=== PATIENT | female | born 1965 | race Caucasian/White ===

== ENCOUNTER 2017-10-17 16:35 | Emergency (ER) | payer BC ==
[2017-10-17 17:13] VITALS: BP 123/91
--- NOTE | 2017-10-17 17:23 | UC ---
Respiratory Complaint HPI - HPI Summary HPI Summary: Pt presents with fever, body aches, and dry cough for the last 4 days. She tells me that her symptoms began with fatigue and body aches, but she has developed a dry cough since yesterday. Also feels sinus congestion. Denies SOB, chest pain, abdominal pain, n/v/d/c. She is still smoking - History of Current Complaint Chief Complaint: UCRespiratory Stated Complaint: COUGH,CONGESTION Time Seen by Provider: 10/17/17 17:23 Hx Obtained From: Patient Onset/Duration: Gradual Onset Timing: Constant Severity Initially: Moderate Severity Currently: Moderate Pain Intensity: 4 Pain Scale Used: 0-10 Numeric Character: Cough: Nonproductive - Allergies/Home Medications Allergies/Adverse Reactions: Allergies Allergy/AdvReac Type Severity Reaction Status Date / Time Lamotrigine [From Lamictal] Allergy Rash Verified 10/17/17 17:14 PMH/Surg Hx/FS Hx/Imm Hx - Surgical History Surgical History: Yes Surgery Procedure, Year, and Place: Hysterectomy - Family History Known Family History: Positive: Respiratory Disease - COPD ASTHMA - Social History Occupation: Employed Full-time Lives: Alone Alcohol Use: None Substance Use Type: None Smoking Status (MU): Heavy Every Day Tobacco Smoker Amount Used/How Often: 1/2 PPD Cessation Counseling: Counseled 3+Min - 10 Min Review of Systems Constitutional: Fever, Fatigue, Other - Body aches Skin: Negative Eyes: Negative ENT: Negative Respiratory: Cough Cardiovascular: Negative Gastrointestinal: Negative Neurological: Negative Psychological: Negative All Other Systems Reviewed And Are Negative: Yes Physical Exam Triage Information Reviewed: Yes Appearance: Well-Appearing, No Pain Distress, Well-Nourished Vital Signs: Initial Vital Signs Temp 98.5 F 10/17/17 17:11 Pulse 67 10/17/17 17:11 Resp 12 10/17/17 17:11 BP 123/91 10/17/17 17:11 Pulse Ox 98 10/17/17 17:11 Vital Signs Reviewed: Yes Eyes: Positive: Conjunctiva Clear. Negative: Conjunctiva Inflamed, Discharge ENT: Positive: Hearing grossly normal, Pharynx normal, TMs normal, Uvula midline. Negative: Pharyngeal erythema, Nasal congestion, Nasal drainage, TM bulging, TM dull, TM red, Tonsillar swelling, Tonsillar exudate, Hoarse voice, Sinus tenderness Neck: Positive: Supple, Nontender, No Lymphadenopathy Respiratory: Positive: Chest non-tender, Lungs clear, Normal breath sounds, No respiratory distress, No accessory muscle use Cardiovascular: Positive: RRR, No Murmur, Pulses Normal Neurological: Positive: Alert Psychological: Positive: Age Appropriate Behavior Skin: Negative: rashes UC Diagnostic Evaluation - Laboratory O2 Sat by Pulse Oximetry: 98 Respiratory Course/Dx - Course Course Of Treatment: Suspect influenza vs bronchitis - treat with Tamiflu and Albuterol inhaler - Differential Dx/Diagnosis Provider Diagnoses: Influenza. Bronchitis Discharge - Discharge Plan Condition: Stable Disposition: HOME Prescriptions: Albuterol HFA INHALER* [Ventolin HFA Inhaler*] 2 puff INH Q6H PRN #1 mdi PRN Reason: Cough Oseltamivir CAP* [Tamiflu CAP*] 75 mg PO BID #10 cap Patient Education Materials: Influenza (DC) Referrals: Alexandra Franklin MD [Primary Care Provider] - Additional Instructions: If you develop a fever, shortness of breath, chest pain, new or worsening symptoms - please call your PCP or go to the ED.
== END 2017-10-17 17:38 | disposition home or self-care (01) ==
LOC: UCEAST 16:35
DX: J11.1 Influenza due to unidentified influenza virus with other respiratory manifestations (principal); J40 Bronchitis, not specified as acute or chronic; F17.210 Nicotine dependence, cigarettes, uncomplicated
CPT/HCPCS: 99212; G0463

== ENCOUNTER 2017-10-20 14:02 | Emergency (ER) | payer BC ==
[2017-10-20 16:10] VITALS: BP 121/80
--- NOTE | 2017-10-20 16:52 | RAD ---
INDICATION: Cough. COMPARISON: Comparison is made with a prior study from October 07, 2009. TECHNIQUE: Dual-energy PA and lateral views of the chest were obtained. FINDINGS: The heart is within normal limits in size. Mediastinal and hilar contours appear within normal limits. The lungs are clear. No pleural effusion is present. IMPRESSION: NO EVIDENCE FOR ACTIVE CARDIOPULMONARY DISEASE.
--- NOTE | 2017-10-21 22:15 | UC ---
Ksaey Michelle Gabriel, scribed for Tl Davila MD on 10/20/17 at 1616 . Throat Pain/Nasal Nigel HPI - HPI Summary HPI Summary: This patient is a 51 year old F presenting to [facility] [place] with a chief complaint of sinus congestion since 10/17/17. The patient rates the pain 4/10 in severity. Patient reports sore throat, dry cough, trouble breathing, headache, nasal discharge, post nasal drip, and chest congestion. Pt was seen at on 10/17/17 diagnosed with flu without using a swab and given Tamiflu and albuterol. She does not believe these treatments are working. - History of Current Complaint Chief Complaint: UCRespiratory Stated Complaint: CONGESTED, COUGH Time Seen by Provider: 10/20/17 16:11 Hx Obtained From: Patient Onset/Duration: Lasting Days, Still Present Severity: Mild Pain Intensity: 4 Pain Scale Used: 0-10 Numeric Cough: Nonproductive Associated Signs & Symptoms: Positive: Other - sore throat, dry cough, trouble breathing, headache, nasal discharge, post nasal drip, and chest congestion. - Allergies/Home Medications Allergies/Adverse Reactions: Allergies Allergy/AdvReac Type Severity Reaction Status Date / Time MS Lamotrigine Allergy Rash Verified 10/20/17 16:10 [From Lamictal] PMH/Surg Hx/FS Hx/Imm Hx Other History Of: Negative For: HIV, Hepatitis B, Hepatitis C - Surgical History Surgical History: Yes Surgery Procedure, Year, and Place: Hysterectomy - Family History Known Family History: Positive: Respiratory Disease - COPD ASTHMA, Other - cancer Negative: Cardiac Disease, Hypertension, Diabetes, Renal Disease, Seizure Disorder - Social History Alcohol Use: Occasionally Substance Use Type: None Smoking Status (MU): Heavy Every Day Tobacco Smoker Amount Used/How Often: 1/2 PPD Review of Systems ENT: Sore Throat, Nasal Discharge, Sinus Congestion, Other - post nasal drip Respiratory: Cough, Other - trouble breathing, chest congestion Neurological: Headache All Other Systems Reviewed And Are Negative: Yes Physical Exam Triage Information Reviewed: Yes Vital Signs: Initial Vital Signs Temp 99.4 F 10/20/17 16:07 Pulse 56 10/20/17 16:07 Resp 18 10/20/17 16:07 BP 121/80 10/20/17 16:07 Pulse Ox 97 10/20/17 16:07 Vital Signs Reviewed: Yes - Additional Comments Vital signs: Reviewed Gen.: Patient is a well developed and nourished female in no acute distress. Patient is sitting comfortably on the stretcher. Head: Normacephalic and atraumatic Eyes: PERRLA, EOMI x2. Ears: Right ear canal and TM WNL and Left ear canal and TM WNL Nose and mouth: Nose with dry mucosa and clear discharge, positive pharyngeal erythema with no exudate. Neck: Supple, Positive bilateral submandibular and anterior cervical lymphadenopathy. No JVD Lungs: CTA B/L CVS: S1 & S2 present. No murmurs appreciated. ABDOMEN: Soft NT w/ positive BS. EXT: FROM x 4 NEURO: A+O X 3. Diagnostics - Radiology CXR Radiology Interpretation Completed By: Radiologist - NO EVIDENCE FOR ACTIVE CARDIOPULMONARY DISEASE. Dr. Davila has reviewed this report Throat Pain/Nasal Course/Dx - Course Assessment/Plan: This patient is a 51 year old F presenting to [facility] [place] with a chief complaint of sinus congestion since 10/17/17. The patient rates the pain 4/ 10 in severity. Patient reports sore throat, dry cough, trouble breathing, headache, nasal discharge, post nasal drip, and chest congestion. Pt was seen at on 10/17/17 diagnosed with flu without using a swab and given Tamiflu and albuterol. She does not believe these treatments are working. CXR reveals, NO EVIDENCE FOR ACTIVE CARDIOPULMONARY DISEASE. Rapid strep was negative. I discussed all the findings and test results with the patient. Pt was instructed to return to the urgent care or go to ER immediately if any of the symptoms return or worsens. Plan of care was discussed with the patient and pt understands and agrees. All questions were answered to patient satisfaction. There were no further complaints or concerns. Patient was diagnosed with Acute sinusitis. Patient will be discharged with prescription for amoxicillin and follow up from PCP. The patient is agreeable with this plan. - Differential Dx/Diagnosis Differential Diagnosis/HQI/PQRI: Influenza, Laryngitis, Pharyngitis, Sinusitis, URI Provider Diagnoses: Acute sinusitis Discharge - Discharge Plan Condition: Stable Disposition: HOME Prescriptions: Amoxicillin PO (*) [Amoxicillin 875 MG (*)] 875 mg PO BID #20 tab Patient Education Materials: Sinusitis (ED) Forms: *Work Release Referrals: Alexandra Franklin MD [Primary Care Provider] - Additional Instructions: Take medications as instructed Increase your fluid intake Return to the UC if symptoms worsen The documentation as recorded by the Kasey de la garza Gabriel accurately reflects the service I personally performed and the decisions made by , Tl Davila MD.
== END 2017-10-20 17:25 | disposition home or self-care (01) ==
LOC: UCEAST 14:02
DX: J01.90 Acute sinusitis, unspecified (principal); J02.9 Acute pharyngitis, unspecified; R05 Cough; R09.89 Other specified symptoms and signs involving the circulatory and respiratory systems; Z88.8 Allergy status to other drugs, medicaments and biological substances; Z90.710 Acquired absence of both cervix and uterus; F17.210 Nicotine dependence, cigarettes, uncomplicated
CPT/HCPCS: 71046; 87651; 99212; G0463

== ENCOUNTER 2017-10-30 07:43 | Emergency (ER) | payer SELFPAY ==
[2017-10-30 08:02] VITALS: BP 122/80
[2017-10-30] MEDS ORDERED: Ibuprofen TAB* 600 MG PO ONE (08:32)
[2017-10-30] MEDS ORDERED: Cyclobenzaprine TAB* 10 MG PO ONE (08:32)
--- NOTE | 2017-10-30 08:32 | UC ---
Back Pain HPI - HPI Summary HPI Summary: Strained right lateral lower back yesterday at work-No specific traumatic injury No radiation in to leg-n/m/c intact distally, has used Ibuprofen and heat with some relief - History of Current Complaint Chief Complaint: UCBackPain Stated Complaint: BACK INJURY Time Seen by Provider: 10/30/17 08:22 Hx Obtained From: Patient ?: No Onset/Duration: Sudden Onset, Lasting Days - 1 Timing: Constant Severity Initially: Moderate Severity Currently: Moderate Pain Intensity: 10 Back Pain: Is Discrete @ - right lower lateral Character: Aching, Spasmodic, Stiffness Aggravating Factor(s): Movement Alleviating Factor(s): Heat, OTC Meds Associated Signs And Symptoms: Positive: Negative Related History: Occupational Injury - Allergies/Home Medications Allergies/Adverse Reactions: Allergies Allergy/AdvReac Type Severity Reaction Status Date / Time lamotrigine [From Lamictal] Allergy Rash Verified 10/30/17 07:53 PMH/Surg Hx/FS Hx/Imm Hx Previously Healthy: Yes Other History Of: Negative For: HIV, Hepatitis B, Hepatitis C - Surgical History Surgical History: Yes Surgery Procedure, Year, and Place: Hysterectomy - Family History Known Family History: Positive: Respiratory Disease - COPD ASTHMA, Other - cancer Negative: Cardiac Disease, Hypertension, Diabetes, Renal Disease, Seizure Disorder - Social History Occupation: Employed Full-time Lives: With Family Alcohol Use: Occasionally Substance Use Type: None Smoking Status (MU): Heavy Every Day Tobacco Smoker Amount Used/How Often: 4-5 cigs per day Cessation Counseling: Counseled 3+Min - 10 Min Review of Systems Constitutional: Negative Skin: Negative Eyes: Negative ENT: Negative Respiratory: Negative Cardiovascular: Negative Gastrointestinal: Negative Genitourinary: Negative Motor: Decreased ROM - lower back Neurovascular: Negative Musculoskeletal: Myalgia - right side of lower back Neurological: Negative Psychological: Negative Is Patient Immunocompromised?: No All Other Systems Reviewed And Are Negative: Yes Physical Exam Triage Information Reviewed: Yes Appearance: Well-Appearing, Well-Nourished, Pain Distress Vital Signs: Initial Vital Signs Temp 98.3 F 10/30/17 07:55 Pulse 60 10/30/17 07:55 Resp 16 10/30/17 07:55 BP 122/80 10/30/17 07:55 Pulse Ox 96 10/30/17 07:55 Vital Signs Reviewed: Yes Eye Exam: Normal Eyes: Positive: Conjunctiva Clear ENT Exam: Normal ENT: Positive: Normal ENT inspection, Hearing grossly normal, Uvula midline. Negative: Nasal congestion, Nasal drainage, Trismus, Muffled voice, Hoarse voice , Dental tenderness, Sinus tenderness Dental Exam: Normal Neck exam: Normal Neck: Positive: Supple, Nontender Respiratory Exam: Normal Respiratory: Positive: Chest non-tender, No respiratory distress, No accessory muscle use Cardiovascular Exam: Normal Cardiovascular: Positive: RRR, Pulses Normal, Brisk Capillary Refill Abdomen Description: Negative: CVA Tenderness (R), CVA Tenderness (L) Musculoskeletal Exam: Other Musculoskeletal: Positive: Strength Intact, No Edema, ROM Limited @ - low back Neurological Exam: Normal Neurological: Positive: Alert, Muscle Tone Normal Psychological Exam: Normal Skin Exam: Normal Back Pain Course/Dx - Course Course Of Treatment: ibuprofen, flexeril, heat, low back exercise, follow with pcp prn, smoking cesasation information provided - Differential Dx/Diagnosis Provider Diagnoses: acute muscle strain low back, nicotine dependent Discharge - Discharge Plan Condition: Stable Disposition: HOME Prescriptions: Cyclobenzaprine TAB* [Flexeril 10 MG TAB*] 10 mg PO TID PRN #15 tab PRN Reason: muscle spasm Ibuprofen TAB* [Motrin TAB* 600 MG] 600 mg PO Q6H PRN #40 tab PRN Reason: pain Patient Education Materials: Low Back Strain (ED), Acute Low Back Pain (ED), Muscle Spasm (ED), Lower Back Exercises (ED) Forms: *Work Release Referrals: [facility] [place] [facility]FERR[facility] [Outside] - If Needed Alexandra Franklin MD [Primary Care Provider] - If Needed
== END 2017-10-30 08:57 | disposition home or self-care (01) ==
LOC: UCEAST 07:43
DX: S39.012A Strain of muscle, fascia and tendon of lower back, initial encounter (principal); X58.XXXA Exposure to other specified factors, initial encounter; Y93.9 Activity, unspecified; Y92.9 Unspecified place or not applicable; Y99.9 Unspecified external cause status; F17.210 Nicotine dependence, cigarettes, uncomplicated
CPT/HCPCS: 99212; A9270-GY; G0463

== ENCOUNTER 2018-11-17 12:49 | Emergency (ER) | payer BC ==
--- NOTE | 2018-11-17 12:58 | UC ---
Back Pain HPI - HPI Summary HPI Summary: 52 yo female presents s/p fall. She tells me that last night she fell on the ice at home and landed on her buttocks. Did not hit her head or have LOC. She was able to get to her feet following the fall. Since that time has had neck and low back pain. Has been taking tylenol and flexeril with little relief. She states that she does have a hx of back pain from a work injury last year. Denies radiation of pain, numbness, tingling, saddle anesthesia, or loss of bowel/bladder control. - History of Current Complaint Stated Complaint: BACK /NECK INJURY Time Seen by Provider: 11/17/18 12:56 Hx Obtained From: Patient - Allergies/Home Medications Allergies/Adverse Reactions: Allergies Allergy/AdvReac Type Severity Reaction Status Date / Time lamotrigine [From Lamictal] Allergy Rash Verified 11/17/18 13:08 Home Medications: Home Medications Acetaminophen [Tylenol Extra Strength] 500 mg PO ONCE PRN 11/17/18 [History Confirmed 11/17/18] PMH/Surg Hx/FS Hx/Imm Hx - Additional Past Medical History Additional PMH: None Other History Of: Negative For: HIV, Hepatitis B, Hepatitis C - Surgical History Surgical History: Yes Surgery Procedure, Year, and Place: Hysterectomy - Family History Known Family History: Positive: Respiratory Disease - COPD ASTHMA, Other - cancer Negative: Cardiac Disease, Hypertension, Diabetes, Renal Disease, Seizure Disorder - Social History Lives: With Family Alcohol Use: Occasionally Substance Use Type: None Smoking Status (MU): Heavy Every Day Tobacco Smoker Amount Used/How Often: 4-5 cigs per day Review of Systems All Other Systems Reviewed And Are Negative: Yes Constitutional: Positive: Negative Skin: Positive: Negative Respiratory: Positive: Negative Cardiovascular: Positive: Negative Neurovascular: Positive: Negative Musculoskeletal: Positive: Other: - Neck pain. Low back pain Neurological: Positive: Negative Psychological: Positive: Negative Physical Exam - Summary Physical Exam Summary: GENERAL: NAD. WDWN. No pain distress. SKIN: No rashes, sores, lesions, or open wounds. NECK: Supple. FROM. Nontender. No lymphadenopathy. CHEST: CTAB. No r/r/w. No accessory muscle use. Breathing comfortably and in no distress. CV: RRR. Without m/r/g. Pulses intact. Cap refill <2seconds MSK: TTP over lumbar paraspinal muscles. No ecchymosis. Pain with flexion and extension of spine. Negative SLR b/l for low back pain. Strength 5/5 B/L LEs including dorsiflexion and plantar flexion. FROM B/L LEs. No edema. Cervical spine: Mild TTP over upper trapezius. Pain with neck flexion. Negative spurling' s. No vertebral tenderness. NEURO: Alert. Sensations intact B/L UEs C4-T1 and LEs L3-S1. PSYCH: Age appropriate behavior. Triage Information Reviewed: Yes Vital Signs: Vital Signs: Temp Pulse Resp BP Pulse Ox 98.6 F 71 18 122/68 97 11/17/18 13:04 11/17/18 13:04 11/17/18 13:04 11/17/18 13:04 11/17/18 13:04 Vital Signs Reviewed: Yes Back Pain Course/Dx - Course Course Of Treatment: XR c spine: IMPRESSION: DEGENERATIVE CHANGES. NO ACUTE OSSEOUS INJURY TO THE CERVICAL SPINE. XR lumbar spine: IMPRESSION: DEGENERATIVE DISC DISEASE AND OSTEOARTHRITIS MOST PRONOUNCED ALONG THE LOWER LUMBAR SPINE. Suspect muscle strain from fall yesterday. Advised to continue tylenol and flexeril. Rest and apply ice/heat to your areas of pain and f/u if symptoms do not improve. - Differential Dx/Diagnosis Provider Diagnosis: Fall, Neck pain, Low back pain Discharge - Sign-Out/Discharge Documenting (check all that apply): Patient Departure All imaging exams completed and their final reports reviewed: Yes - Discharge Plan Condition: Stable Disposition: HOME Patient Education Materials: Muscle Strain (ED) Forms: *Work Release Referrals: Alexandra Franklin MD [Primary Care Provider] - Additional Instructions: If you develop a fever, shortness of breath, chest pain, new or worsening symptoms - please call your PCP or go to the ED. Your X-Rays today were normal 1) Rest and apply ice/heat to your areas of pain 2) I suspect most of your pain is due to your fall yesterday and will improve in a few days, but this will take time. 3) If you do not improve or if your symptoms worsen - please be rechecked - Billing Disposition and Condition Condition: STABLE Disposition: Home
[2018-11-17 13:08] VITALS: BP 122/68
== END 2018-11-17 14:09 | disposition home or self-care (01) ==
LOC: UCEAST 12:49
DX: M54.2 Cervicalgia (principal); M54.5 Low back pain; F17.210 Nicotine dependence, cigarettes, uncomplicated; Z88.8 Allergy status to other drugs, medicaments and biological substances; W00.0XXA Fall on same level due to ice and snow, initial encounter
CPT/HCPCS: 72050; 72110; 99211; G0463

== ENCOUNTER 2019-01-03 17:10 | Emergency (ER) | payer BC ==
[2019-01-03 17:24] VITALS: BP 129/79
--- NOTE | 2019-01-03 18:07 | UC ---
Back Pain HPI - HPI Summary HPI Summary: PATIENT IS EMPLOYED A NURSE AT [employer]. A 250 POUND PATIENT WAS FALLING TO THE FLOOR 2 DAYS AGO AND THE PATIENT TRIED TO CATCH HIM. SHE FELT IMMEDIATE PAIN THAT HAS WORSENED SINCE THE INCIDENT. OTC IBUPROFEN HELPS DOES FLEXERIL THAT SHE HAS LEFT FROM A PREVIOUS PRESCRIPTION. HEAT ALSO HELPFUL. NO NUMBNESS/TINGLING, LOSS OF BOWEL OR BLADDER CONTROL OR SADDLE ANESTHESIA. - History of Current Complaint Chief Complaint: UCBackPain Stated Complaint: WC LOWER BACK INJURY Time Seen by Provider: 01/03/19 17:21 Hx Obtained From: Patient Hx Last Menstrual Period: hysterectomy Onset/Duration: Sudden Onset, Lasting Days, Still Present Timing: Constant Severity Initially: Mild Severity Currently: Moderate Pain Intensity: 5 Pain Scale Used: 0-10 Numeric Back Pain: Is Discrete @ - LOW BACK Character: Sharp Aggravating Factor(s): Movement, Bending Alleviating Factor(s): Rest, Heat, OTC Meds - IBUPROFEN Associated Signs And Symptoms: Positive: Negative - Allergies/Home Medications Allergies/Adverse Reactions: Allergies Allergy/AdvReac Type Severity Reaction Status Date / Time lamotrigine [From Lamictal] Allergy Rash Verified 01/03/19 17:24 PMH/Surg Hx/FS Hx/Imm Hx Neurological History: Seizures Other History Of: Negative For: HIV, Hepatitis B, Hepatitis C - Surgical History Surgical History: Yes Surgery Procedure, Year, and Place: Hysterectomy- partial - Family History Known Family History: Positive: Respiratory Disease - COPD ASTHMA, Other - cancer Negative: Cardiac Disease, Hypertension, Diabetes, Renal Disease, Seizure Disorder - Social History Alcohol Use: Occasionally Substance Use Type: None Smoking Status (MU): Light Every Day Tobacco Smoker Type: Cigarettes Amount Used/How Often: 4-5 cigs per day Household Exposure Type: Cigarettes Review of Systems All Other Systems Reviewed And Are Negative: Yes Constitutional: Positive: Negative Skin: Positive: Negative Respiratory: Positive: Negative Cardiovascular: Positive: Negative Gastrointestinal: Positive: Negative Musculoskeletal: Positive: Arthralgia, Decreased ROM, Myalgia Physical Exam Triage Information Reviewed: Yes Appearance: Well-Appearing, Well-Nourished, Pain Distress - MODERATE Vital Signs: Initial Vital Signs Temp 98 F 01/03/19 17:15 Pulse 72 01/03/19 17:15 Resp 16 01/03/19 17:15 BP 129/79 01/03/19 17:15 Pulse Ox 97 01/03/19 17:15 Vital Signs Reviewed: Yes Eyes: Positive: Conjunctiva Clear ENT: Positive: Hearing grossly normal Neck: Positive: Supple, Nontender, No Lymphadenopathy Respiratory: Positive: No respiratory distress, No accessory muscle use Cardiovascular: Positive: Pulses Normal Abdomen Description: Positive: Soft Musculoskeletal: Positive: No Edema, ROM Limited @ - BACK, Other: - NOT TENDER OVER BONY PROMINENCES OR SOFT TISSUES OF THE BACK Neurological: Positive: Alert Psychological: Positive: Age Appropriate Behavior Skin: Negative: Rashes Back Pain Course/Dx - Differential Dx/Diagnosis Provider Diagnosis: Low back strain Discharge - Sign-Out/Discharge Documenting (check all that apply): Patient Departure All imaging exams completed and their final reports reviewed: No Studies - Discharge Plan Condition: Stable Disposition: HOME Patient Education Materials: Low Back Strain (ED) Forms: *Work Release Referrals: Alexandra Franklin MD [Primary Care Provider] - If Needed Additional Instructions: YOUR SYMPTOMS SHOULD IMPROVE SIGNIFICANTLY OVER THE NEXT 1-2 WEEKS. IF YOU DO NOT IMPROVE EXPECTED FOLLOW-UP WITH YOUR PCP. YOU MAY BENEFIT FROM IMAGING AT THAT TIME. REST. OTC IBUPROFEN OR ALEVE NEEDED FOR DISCOMFORT. TAKE YOUR MUSCLE RELAXER BEFORE BED. BE SURE TO GO THROUGH SLOW RANGE OF MOTION AND STRETCHING EXERCISES DAILY YOU ARE ABLE TO PREVENT STIFFENING UP AND MAKING THE DISCOMFORT WORSE. GO TO THE ED WITHOUT FAIL IF YOU DEVELOP WORSENING NUMBNESS/TINGLING IN YOUR LEGS, NUMBNESS IN THE GENITAL REGION, LOSS OF BOWEL/BLADDER CONTROL, INTOLERABLE PAIN OR ANY OTHER CONCERNING SYMPTOMS. - Billing Disposition and Condition Condition: STABLE Disposition: Home
== END 2019-01-03 18:05 | disposition home or self-care (01) ==
LOC: UCEAST 17:10
DX: S39.012A Strain of muscle, fascia and tendon of lower back, initial encounter (principal); X50.0XXA Overexertion from strenuous movement or load, initial encounter; Y93.F9 Activity, other caregiving; Y92.129 Unspecified place in nursing home as the place of occurrence of the external cause; Y99.0 Civilian activity done for income or pay; F17.210 Nicotine dependence, cigarettes, uncomplicated
CPT/HCPCS: 99211; G0463